=== PATIENT | female | born 1940 | race African-American/Black ===

== ENCOUNTER → 2018-10-09 | Outpatient (CLI) | payer OTHER, MEDICARE ==
[~2018-10-09] MED LIST: ASPIR 8181 M1 PO; DIOVAN HCT 3201 EACH PO; GLUCOPHAGE500 MG PO; GLYBURIDE 5 MG T5 MG PO; HUMULINR100 SUBQ; LEVEMIR SUBQ; METOPROLOL TART25 MG PO; NEURONTIN 300300 M1 PO; NORCO 5-325 TA1 EACH PO; PHOSLO667 MG PO; SENSIPAR 30 MG30 MG PO; ZOCOR80 MG PO
== END ==
LOC: CAT 08:41
DX: I67.82 Cerebral ischemia (principal); E11.40 Type 2 diabetes mellitus with diabetic neuropathy, unspecified; E11.22 Type 2 diabetes mellitus with diabetic chronic kidney disease; E11.29 Type 2 diabetes mellitus with other diabetic kidney complication; I12.0 Hypertensive chronic kidney disease with stage 5 chronic kidney disease or end stage renal disease; N18.5 Chronic kidney disease, stage 5; E78.5 Hyperlipidemia, unspecified; W19.XXXA Unspecified fall, initial encounter

== ENCOUNTER 2018-12-10 04:07 | Emergency (ER) | payer OTHER, MEDICARE ==
[~2018-12-10] VITALS: Ht 167.6 cm; Wt 78.5 kg
[2018-12-10 04:45] LABS: MCHC 32.8 g/dL (28.0-37.0); RBC 4.64 mil/uL (4.20-5.00); WBC 8.7 thou/uL (4.0-11.0)
[2018-12-10 04:46] LABS: HEMATOCRIT 47.6 % (37.0-47.0); HEMOGLOBIN 15.6 gm/dL (12.0-15.0); MCH 33.7 pg (26.0-34.0); MCV 102.8 fL (80.0-100.0); RDW 19.4 % (10.5-14.5)
[2018-12-10 05:17] LABS: CALCIUM 10.1 mg/dL (8.5-10.1); CREATININE 9.5 mg/dL (0.6-1.0); POTASSIUM 5.1 mmol/L (3.5-5.1)
[2018-12-10 05:27] LABS: ALBUMIN 3.2 g/dL (3.4-5.0); TOTAL BILIRUBIN 1.6 mg/dL (<0.1-1.0); TOTAL PROTEIN 6.7 g/dL (6.4-8.2); TROPONIN-I 0.25 ng/mL (<0.06)
[2018-12-10 10:41] VITALS: BP 123/68
--- NOTE | 2018-12-10 14:20 | EKG ---
[address] [place] [address] ELECTROCARDIOGRAM REPORT Name: ALEX STEWART [facility] [id number] ������������������ Admission: 12/10/18 ������������������ Attend Phys: Discharge: 12/10/18 ������������������ Date of : 38 Report #: [id number] ����������������������������������������������������������������� [id number] THIS REPORT FOR: //name// [facility] ED Test Date: 2018-12-10 Test Time: 04:35:02 Pat Name: ALEX STEWART Department: Room: Gender: F Residential Builder: lawson : 1940 Requested By: Sanjuanita Wong Order Number: [id number] MD: Vishal Newell Measurements Intervals [place] Rate: 87 P: 65 DC: 214 QRS: -58 QRSD: 136 T: 100 QT: 412 QTc: 496 Interpretive Statements Sinus rhythm Leftward axis Borderline prolonged DC interval Left bundle branch block Compared to ECG 10/07/2012 09:37:08 Left bundle-branch block now present Electronically Signed On 12-10-2018 14:20:41 CDT by Vishal Newell [email or web address] ��������������������������������������������� <ELECTRONICALLY SIGNED> ���������������������������������������� By: Vishal Newell MD, [facility] ��������������������������������������������� 12/10/18 1420 0435 0435 Vishal Newell MD, [facility] /EPI
== END 2018-12-10 11:07 | disposition home or self-care (01) ==
LOC: ER 04:07
PROVIDERS: Student in an Organized Health Care Education/Training Program
DX: E11.649 Type 2 diabetes mellitus with hypoglycemia without coma (principal); E11.22 Type 2 diabetes mellitus with diabetic chronic kidney disease; N18.6 End stage renal disease; R79.89 Other specified abnormal findings of blood chemistry; I10 Essential (primary) hypertension; E78.00 Pure hypercholesterolemia, unspecified; Z86.73 Personal history of transient ischemic attack (TIA), and cerebral infarction without residual deficits; Z79.4 Long term (current) use of insulin

== ENCOUNTER 2018-12-11 11:34 | Inpatient (IN) | payer OTHER, MEDICARE ==
[2018-12-11] VITALS (23 sets, daily range): BP systolic 91–186; BP diastolic 31–123
[~2018-12-11] VITALS: Ht 170.2 cm; Wt 70.7 kg
--- NOTE | ~2018-12-11 | HC ---
[facility] [place] [address] CONSULTATION Name: ALEX STEWART Room #: 246-P [facility] IN M.R.#: [id number] Admission: 12/11/18 ������������������ Attend Phys: Argelia Jasso Discharge: 12/12/18 ������������������ Date of : 39 Report #: [id number] THIS REPORT FOR: //name// CC: Argelia Bowles DATE OF SERVICE: 12/12/2018 REQUESTING PHYSICIAN: Argelia Jasso MD. CHIEF COMPLAINT: End-stage renal disease, also sepsis, possible secondary to ischemic colitis. HISTORY OF PRESENT ILLNESS: The patient is a 78-year-old female who presented to [facility] on 12/11/2018. She, at that time, had an altered mental status, fatigue, nausea, diarrhea. She has had a history of insulin controlled diabetes and has had recurrent hypoglycemic episodes. She had been in the ED previous day for significant hypoglycemia. She has been as low as less than 21. The patient has had what appears to be thickening of the cecum and ascending colon and she has signs significant for possible ischemic colitis. Surgery does not believe if she is an excellent candidate for surgery at this time and also Nephrology believes that she is not an excellent candidate for continued dialysis. I have spoken with her friend who is her only contact that we have available and confirms that she is the only contact that she has and she states that the patient was not desiring to have dialysis after this last week and had actually stopped dialysis herself. She was living at her own home, legally blind, using a walker, but it appears that the patient had significant decline overall over the last 2-3 days, again unknown as particular origin for current state. She is unable to answer questions for me at this time and would not follow commands. She does have some ability to move and occasionally groans out in pain. PAST MEDICAL HISTORY: End-stage renal disease. Additionally, type 2 diabetes with recurrent hypoglycemia, obesity, hypertension, history of CVA. PAST SURGICAL HISTORY: She has had a right mid humerus repair. She has had an AV fistula placement. SOCIAL HISTORY: Former smoker. Again, she has no established DPOA, no established advance directive at this time. MEDICATIONS: Gabapentin, regular insulin, aspirin, metformin, Diovan including valsartan/hydrochlorothiazide, Zocor, Levemir, metoprolol. ALLERGIES: No known drug allergies. [address] [address] CONSULTATION Name: ALEX STEWART Room #: 246-P [facility] IN M.R.#: [id number] Admission: 12/11/18 ������������������ Attend Phys: Argelia Jasso Discharge: 12/12/18 ������������������ Date of : 39 Report #: [id number] FAMILY HISTORY: Again, unable to obtain at this time, but none pertinently known. REVIEW OF SYSTEMS: Unable to obtain at this time due to chronic medical condition. PHYSICAL EXAMINATION: VITAL SIGNS: Temperature 35.2, pulse 81, respirations 17, blood pressure had been 173/57, 97% on a mask. GENERAL: Again, not alert, unable to assess orientation. Most time, she appears to be in no acute distress. HEENT: Occasionally, opens eyes. They do not appear to be icteric on her conjunctivae. CARDIOVASCULAR: Regular rate and rhythm without murmur. LUNGS: Difficult to auscultate fully, but anteriorly clear. ABDOMEN: Appears to have some mild tenderness to palpation based on grimacing. EXTREMITIES: She does not appear to have necrosis, but does have diminished pulses in bilateral lower extremities. LABORATORY DATA: White blood cell 24.8, hemoglobin 13.6, platelets 136, potassium is critical at 6.4, creatinine 10.0, lactic acid 12.4. ASSESSMENT AND PLAN: 1. Sepsis severe. At this time, suspect due to ischemic colitis, possibly due to other origins; however, the patient has significant contributing medical conditions. It would likely mean that her overall prognosis is very severe. I agree completely with Nephrology's assessment that she is not a good candidate for continued dialysis and also she has had confirmation from both dialysis staff through our case management and also through her friend today who I have talked to directly that she did not want to pursue dialysis any further and this is why she had stopped this previously. However, she did not make this clear in advanced directive. She is still not a candidate for further dialysis at this time and would not be an excellent candidate for surgical procedure. We have at this time elected to make her palliative care. I have changed her code status to DNR and I have informed her friends as well as her typing checker who is present at my interview. We will go ahead and order for comfort care medications, stop antibiotics, change her from mask oxygen, change her to nasal cannula. Staff was understanding of the instructions with regards to her palliation at this time. There is a possibility of being able to move her to another location, but certainly this is complicated by the fact that she has no established power of admitted attorneys or next of kin. I feel that she will likely need to have inpatient palliative care unless there are some other arrangements made such as potential guardianship; however, I do not feel like her life expectancy would allow for that at this time. 2. End-stage renal disease. Again, as above, I agree that she is not a good candidate for continued dialysis therapy and I expect her life expectancy to be [facility] [address] [place] [address] CONSULTATION Name: ALEX STEWART Room #: 246-P [facility] IN M.R.#: [id number] Admission: 12/11/18 ������������������ Attend Phys: Argelia Jasso Discharge: 12/12/18 ������������������ Date of : 39 Report #: [id number] approximately 7-10 days or less based on this. Thank you very much for this consultation. Please contact me for any further questions regarding her continued care. ��������������������������������������������� ���������������������������������������� By: ��������������������������������������������� 41 48 Apollo Villatoro DO /john
--- NOTE | ~2018-12-11 | HC ---
[facility] [place] [address] CONSULTATION Name: ALEX STEWART Room #: 246-P [facility] IN M.R.#: [id number] Admission: 12/11/18 ������������������ Attend Phys: Argelia Jasso Discharge: 12/12/18 ������������������ Date of : 39 Report #: [id number] THIS REPORT FOR: //name// CC: Argelia Bowles REASON FOR THE CONSULTATION: End-stage renal disease. REASON FOR THE PRESENTATION: Brought because of weakness. HISTORY OF PRESENT ILLNESS: Those were obtained from the chart as the patient is not able to provide me with the details of the history. She is a hemodialysis patient who dialyzes every Saturday, Saturday and Saturday. She missed her Saturday dialysis session. She is legally blind and lives at home. She has been feeling weak and had some issues with nausea, diarrhea and shortness of breath. She also lost her appetite. She was confused. She had some bruises on her face when she presented yesterday and she reported that she had a fall more than a month ago. On presentation, the patient was found to have significant lactic acidosis with hyperkalemia. She was emergently dialyzed yesterday. She continues to be acidotic and she had significant leukocytosis with no source yet. I am being consulted to manage her end-stage renal disease. PAST MEDICAL HISTORY: 1. End-stage renal disease. 2. Legally blind. 3. Diabetes mellitus. 4. Hyperlipidemia. 5. Stroke. PAST SURGICAL HISTORY: AV fistula. ALLERGIES: None. SOCIAL HISTORY: No drug or alcohol abuse. REVIEW OF SYSTEMS: I am not able to obtain as the patient is currently confused. PHYSICAL EXAMINATION: GENERAL: She is confused and disoriented. VITAL SIGNS: Blood pressure is 134/72. She is very lethargic. She is hypothermic and temperature was 34.2. HEAD AND NECK: No jugular venous distention. CHEST: Decreased air entry bilaterally. CARDIOVASCULAR: No rub. ABDOMEN: Soft and nontender. LOWER EXTREMITIES: +2 edema. [facility] [address] [place] [address] CONSULTATION Name: ALEX STEWART Room #: 246-P [facility] IN M.R.#: [id number] Admission: 12/11/18 ������������������ Attend Phys: Argelia Jasso Discharge: 12/12/18 ������������������ Date of : 39 Report #: [id number] LABORATORY DATA: Laboratory values reviewed. White blood cell count was 28.4, pH 7.2. Lactic acid this morning is up to 12. Potassium was 6.4 even though she was dialyzed yesterday. Cultures are pending. UA is positive for nitrite. RADIOLOGICAL DATA: Chest x-ray with fluid overload. CT chest, abdomen and pelvis with gallbladder distention and thickening of the cecum and cardiomegaly. ASSESSMENT, IMPRESSION AND PLAN: 1. End-stage renal disease. 2. Sepsis with high lactic acidosis with unknown source. 3. Leukocytosis. 4. Persistent hyperkalemia. 5. We will arrange for the patient to have another dialysis treatment given her hyperkalemia today. 6. Infectious Disease is following and managing her antibiotic given her leukocytosis and severe lactic acidosis. 7. Not really sure what the source for her hyperkalemia and lactic acidosis and elevated AST. Very concerned about ischemic bowel; however, this was not present on the CT that was done yesterday. 8. We will reach out to the family members regarding the patient's poor condition. 9. We will continue to follow during the hospital stay. ��������������������������������������������� ���������������������������������������� By: ��������������������������������������������� 0821 2321 Niko Davies MD /nt
--- NOTE | 2018-12-11 12:57 | NUR ---
[facility] CELL # IS [phone]
[2018-12-11 13:52] LABS: HEMOGLOBIN 15.8 gm/dL (12.0-15.0)
[2018-12-11 13:54] LABS: HEMATOCRIT 48.3 % (37.0-47.0); MCHC 32.7 g/dL (28.0-37.0); RBC 4.65 mil/uL (4.20-5.00); WBC 10.4 thou/uL (4.0-11.0)
[2018-12-11 14:08] LABS: CALCIUM 10.5 mg/dL (8.5-10.1); POTASSIUM 5.8 mmol/L (3.5-5.1)
[2018-12-11 14:09] LABS: CREATININE 10.8 mg/dL (0.6-1.0)
[2018-12-11 14:18] LABS: ALBUMIN 3.3 g/dL (3.4-5.0); TOTAL BILIRUBIN 1.7 mg/dL (<0.1-1.0); TOTAL PROTEIN 6.6 g/dL (6.4-8.2); TROPONIN-I 0.2 ng/mL (<0.06)
[2018-12-11 14:44] LABS: ABSOLUTE NEUTROPHILS 5.6 thou/uL (1.4-8.2); CORRECTED WBC 7.4 thou/uL (4.0-11.0); NUCLEATED RBCS 40 /100WBC
[2018-12-11 14:49] LABS: ANISOCYTOSIS 2+; MACROCYTES 1+; SCHISTOCYTES FEW
[2018-12-11 14:50] LABS: BURR CELLS 1+
[2018-12-11 14:54] LABS: LARGE PLATELETS OCCASIONAL; PLATELET COUNT 115 thou/uL (150-400)
[2018-12-11 15:13] LABS: BE(vivo) -13.9 mmol/L (-2 to +3); HCO3 11.1 mmol/L (22.0-26.0); PCO2 25.1 mmHg (35.0-45.0); sO2 99.2 % (92.0-98.0)
[2018-12-11 15:14] LABS: pH 7.264 (7.360-7.450)
[2018-12-11 17:26] LABS: URINE BLOOD 3+ (Negative); URINE CLARITY CLEAR; URINE COLOR YELLOW; URINE GLUCOSE-RANDOM* NEGATIVE (Negative); URINE KETONES NEGATIVE (Negative); URINE PROTEIN (DIPSTICK) 2+ (Negative); URINE SPECIFIC GRAVITY 1.025 (1.005-1.035); URINE UROBILINOGEN 0.2 E.U./dl (0.2-1.0)
[2018-12-11 17:29] LABS: ICTOTEST (BILI CONFIRMATORY) Negative (Negative); URINE BILIRUBIN NEGATIVE (Negative); URINE LEUKOCYTES-REFLEX 1+ (Negative); URINE NITRITE-REFLEX POSITIVE (Negative)
[2018-12-11 17:46] LABS: CASTS None Seen /LPF (None Seen); CRYSTALS None Seen /LPF (None Seen); SQUAMOUS 4-10 Moderate /LPF (0-3)
[2018-12-11 17:47] LABS: URIC ACID CRYSTALS 0-3 Few /LPF (None Seen)
[2018-12-11 17:48] LABS: BACTERIA-REFLEX 1-9 Few /HPF (None Seen); URINE WBC-REFLEX 0-5 Rare /HPF (0-5)
[2018-12-11 17:49] LABS: URINE RBC 3-10 Few /HPF (0-2)
--- NOTE | 2018-12-11 19:22 | NUR ---
VASCULAR ACCESS TEAM CONSULTED FOR PICC LINE. PT IS DIALYSIS PT SO CVAD MORE APPROPRIATE. DR CASTRO PUT CL ON HOLD LONG PT HAS PIV. PT HAS 2 PIV'S AT PRESENT.
--- NOTE | 2018-12-11 19:42 | NUR ---
PATIENT ARRIVED FROM THE ED INTO ROOM 246 AT 1815. PATIENT AWAKE AND ALERT FOLLOWING COMMANDS. PATIENT HYPOTHERMICAND UNABLW TO GET TEMP. PATIENT PLACED UNDER BARE HUGGER. ORDERS RECIEVED FOR PICC LINE, CALLED DR CHISHOLM AND HE STATED THAT WE DID NOT HAVE TO PLACE THE LINE LONG WE HAVE A GOOD PIV. #18 IN RIGHT EJ WORKING WELL, CALLED IV TEAM AND ASKED THEM TO COME PLACE A BACK UP PIV LINE JUST IN CASE. LONG #20 PLACED IN [place] AND WORKING WELL. DR PEREZ STATES THAT PATIENT STILL NEEDS PICC LINE. CALLED DR LYNNE SINCE PATIENT IS A DIALYSIS PATIENT AND HE SAID NO PICC LONG I HAVE GOOD WORKING PIV. PATIENT RESTING IN BED AT THIS TIME. REPORT GIVEN TO [employer]ICE [employer]. NO FURTHER CONCENRS AT THIS TIME. WILL CONTINUE TO MONITOR AND CAR PER PLAN OF CARE.
--- NOTE | 2018-12-11 22:50 | NUR ---
ADMISSION HX AND ASSESSMENT DOCUMENT. PT IS CONFUSE. POOR HISTORIAN. UNABLE TO PROVIDE HX. DROWSY. AOX1 ONLY. TALK TO SR. CRUM ABOUT PT CARE. UNABLE TO GET AN APPROPIATE O2 SAT ON PT. TEMPS 93.6, DR. CRUM INFORMED. FAILED ATTEMPT TO GET ABG TO DETERMINE O2 SATS. PT CURRENT UNDER PRISCILA HUGGER AND WARM BLANKETS. ONGOING HEMODIALYSIS CURRENT. PULLED OUT DIALYSIS NEEDLE DURING THERAPY. PT CURRENTLY RESTRAINTED FOR SAFETY. NO COMPLAINS CURRENTLY. WILL CONTINUE TO MONITOR.
[2018-12-11 23:46] LABS: HEMATOCRIT 57.8 % (37.0-47.0); MCH 34.3 pg (26.0-34.0); MCHC 33.5 g/dL (28.0-37.0); MCV 102.3 fL (80.0-100.0); RBC 5.65 mil/uL (4.20-5.00); RDW 19.3 % (10.5-14.5)
[2018-12-11 23:51] LABS: HEMOGLOBIN 19.4 gm/dL (12.0-15.0); WBC 28.4 thou/uL (4.0-11.0)
[2018-12-12] VITALS (20 sets, daily range): BP systolic 79–203; BP diastolic 25–124
[2018-12-12 01:16] LABS: HEMATOCRIT 52.1 % (37.0-47.0); MCH 33.5 pg (26.0-34.0); MCHC 32.5 g/dL (28.0-37.0); MCV 103.2 fL (80.0-100.0); RBC 5.04 mil/uL (4.20-5.00); RDW 19.6 % (10.5-14.5); WBC 27.5 thou/uL (4.0-11.0)
[2018-12-12 01:17] LABS: HEMOGLOBIN 16.9 gm/dL (12.0-15.0)
--- NOTE | 2018-12-12 02:05 | NUR ---
ANOTHER ATTEMPT FOR AN ABG WITH NO SUCCESS. INSTRUMENT MECHANIC INFORMED ABOUT SITUATION. HPOGLYCEMIC, D50 GIVEN. LABS SENT FOR LACTATE, CBC, AND GLUCOSE. COMMUNICATED RESULTS TO LUIS ROSEN. MORPHINE AND ATIVAN GIVEN. WILL CONTINUE TO MONITOR PT.
[2018-12-12 05:41] LABS: HEMATOCRIT 42.6 % (37.0-47.0); HEMOGLOBIN 13.6 gm/dL (12.0-15.0); MCH 33.4 pg (26.0-34.0); MCHC 31.9 g/dL (28.0-37.0); MCV 104.6 fL (80.0-100.0); PLATELET COUNT 136 thou/uL (150-400); RBC 4.07 mil/uL (4.20-5.00); RDW 19.2 % (10.5-14.5); WBC 24.8 thou/uL (4.0-11.0)
[2018-12-12 05:49] LABS: CALCIUM 9.6 mg/dL (8.5-10.1)
[2018-12-12 05:55] LABS: POTASSIUM 6.4 mmol/L (3.5-5.1)
[2018-12-12 06:04] LABS: ABSOLUTE NEUTROPHILS 15.5 thou/uL (1.4-8.2); CORRECTED WBC 17.6 thou/uL (4.0-11.0); NUCLEATED RBCS 41 /100WBC
[2018-12-12 06:05] LABS: BURR CELLS 4+; PLATELET ESTIMATE DECREASED; POLYCHROMASIA 1+
[2018-12-12 06:06] LABS: ANISOCYTOSIS 2+; MACROCYTES 1+
--- NOTE | 2018-12-12 06:15 | NUR ---
trey this a.m. hypothermic, chantelle balderas on pain. no apparent pain. bp stable. critical results communicated to dr. la and ham kilgore. on 15l nrb, no apparent distress at rest. restraints in place, for pt safety. no complains presently. will continue to monitor pt.
--- NOTE | 2018-12-12 09:03 | NUR ---
Received RD consult however per ICU rounds this am, pt will be palliative care. Defer nutrition assessment.
--- NOTE | 2018-12-12 10:05 | NUR ---
DIALYSIS NURSE AT BEDSIDE HAVING BLEEDING DIFFICULTIES WITH FISTULA. DR GAYTAN AT BEDSIDE AND CALLED PT'S EMERGENCY CONTACT AND DISCUSSED POOR PROGNOSIS WITH HER. PT IS A DNR AND DECISION MADE TO GO PALLIATIVE CARE. DR LANGSTON CONSULTED. DIALYSIS NURSE ABLE TO GET BLEEDING TO STOP. PRN LORAZEPAM GIVEN TO PATIENT AND AC WRIST RESTRAINTS REMOVED.
--- NOTE | 2018-12-12 10:10 | NUR ---
INITIAL ASSESSMENT: Pt evaluated for d/c planning needs. Reviewed chart and spoke with nurse and physician. Pt has dialysis MWF at [facility]. Spoke with nurse at [facility]. Pt lives alone in apartment and has no family. Pt has friend who had been checking on her. Dialysis Nurse said that pt has had falls recently and has not had dialysis since last Saturday (12/05). Pt cancelled dialysis for this week. Pt has poor vision. Pt is currently palliative care. Will remain available to assist as needed.
--- NOTE | 2018-12-12 12:09 | EKG ---
[address] [place] [address] ELECTROCARDIOGRAM REPORT Name: TERRYALEX DONNA Room #: 246-P [facility] IN M.R.#: [id number] ������������������ Admission: 12/11/18 ������������������ Attend Phys: Argelia Jasso Discharge: ������������������ Date of : 39 Report #: [id number] ����������������������������������������������������������������� [id number] THIS REPORT FOR: //name// [facility] ED Test Date: 2018-12-11 Test Time: 12:43:45 Pat Name: ALEX STEWART Department: Room: 246 Gender: F Electrical Assembly Supervisor: krista : 1940 Requested By: Renee Teran Order Number: [id number] MD: Vishal Newell Measurements Intervals [place] Rate: 64 P: 39 CA: 173 QRS: -72 QRSD: 148 T: 110 QT: 488 QTc: 504 Interpretive Statements Sinus rhythm Nonspecific IVCD with LAD Poor R wave progression Compared to ECG 12/10/2018 04:35:02 No significant change was found Electronically Signed On 12-12-2018 12:09:07 CDT by Vishal Newell [email or web address] ��������������������������������������������� <ELECTRONICALLY SIGNED> ���������������������������������������� By: Vishal Newell MD, [facility] ��������������������������������������������� 12/12/18 1209 1243 1243 Vishal Newell MD, [facility] /EPI
--- NOTE | 2018-12-12 14:08 | NUR ---
WOUND CONSULT: PT. WAS SEEN TODAY BY DR. WASHBURN AND MYSELF. FAMILY HAS DECIDED TO WITHDRAWL ALL CARES AT THIS TIME. DIALYSIS HAS ALREADY BEEN STOPED AND PALLATIVE CARE HAS BEEN STARTED. WOUND CARE WILL NOT INTERVEN AT THIS TIME.
[2018-12-12 16:08] LABS: HEPATITIS B SURFACE AG Negative (Negative)
--- NOTE | 2018-12-12 19:04 | NUR ---
PT AT 1820. FAMILY FRIEND BINDU NOTIFIED AND MAKING ARRANGEMENTS WITH [facility]. [employer] NOTIFIED AND NOT CANDIDATE FOR ANY DONATION. PACKET COMPLETED BY THIS RN AND REPORTED OFF TO [facility] WHO WILL CALL CONSULTS TO NOTIFY. ALL BELONGINGS PACKED TO GO WITH FAMILY.
--- NOTE | 2018-12-12 20:58 | NUR ---
PT CARE TAKEN OVER AT 1900. CONSULTING PHYSICIANS CALLED AND NOTIFIED OF . SECURITY CALLED TO FLOOR AND PATIENT TAKEN OFF UNIT AT 2100.
--- NOTE | 2018-12-13 10:13 | HC ---
[facility] [place] [address] [address] CONSULTATION Name: ALEX STEWART Room #: 246-P [facility] IN M.R.#: [id number] Admission: 12/11/18 ������������������ Attend Phys: Argelia Jasso Discharge: 12/12/18 ������������������ Date of : 39 Report #: [id number] THIS REPORT FOR: //name// CC: Argelia Hortonen Jelena DATE OF SERVICE: 12/12/2018 CHIEF COMPLAINT: Ulceration to the left foot. HISTORY OF PRESENT ILLNESS: This is a 78-year-old female patient who presented to the hospital with weakness, fatigue, nausea, vomiting, diarrhea 2-3 days ago. She has had insulin controlled diabetes. She is not able to provide any information about herself at this time. The patient is in Intensive Care Unit presently and is not able to answer any questions. PAST MEDICAL HISTORY: Hypertension, hypercholesterolemia, diabetes, stroke, renal failure. SOCIAL HISTORY: Positive for previous smoker status, occasional alcohol consumption. FAMILY HISTORY: Unknown. ALLERGIES: None. MEDICATIONS: Include metformin, Diovan, Zocor, [place], Sensipar, Levemir, metoprolol, PhosLo. REVIEW OF SYSTEMS: Unobtainable due to the patient's diminished level of consciousness. PHYSICAL EXAMINATION: VITAL SIGNS: At this time include pulse rate 85, respiratory rate 14, blood pressure 85/25. GENERAL: This is a chronically ill-appearing female patient who is minimally responsive. HEENT: Head normocephalic. Nose and throat clear. NECK: Supple. LUNGS: Diminished. HEART: Regular rhythm. ABDOMEN: Soft, nontender. EXTREMITIES: Lower extremities appear mottled, distal pulses are not palpable. She has a small area of eschar on the medial aspect of the left ankle. No other evidence of open ulceration at this time. NEUROLOGIC: The patient is nonresponsive. [facility] [address] [place] [address] CONSULTATION Name: STEWARTALEX Room #: 246-P [facility] IN .R.#: [id number] Admission: 12/11/18 ������������������ Attend Phys: Argelia Jasso Discharge: 12/12/18 ������������������ Date of : 39 Report #: [id number] LABORATORY DATA: Includes white blood cell count of 24.8 with hemoglobin 13.6, hematocrit 42.6, platelet count is 136,000. Sodium 137, potassium is 6.4, chloride 99, CO2 is 12. CLINICAL IMPRESSION: 1. Ulceration of the left medial ankle. 2. Severe sepsis with obtundation. 3. End-stage renal disease. 4. Type 2 diabetes mellitus with recent hypoglycemia. RECOMMENDATIONS: At this point in time, I think the dry eschar could be left stable and intact. Clearly, she has a very guarded prognosis and it appears that she is imminently going to be placed on comfort care measures only. At this point in time, we have nothing further to offer or add to her care. We will sign off. Appreciate being asked to see her in consultation. ��������������������������������������������� <ELECTRONICALLY SIGNED> ���������������������������������������� By: Gomez Rivero MD ��������������������������������������������� 12/13/18 1013 1417 0353 Gomez Rivero MD /nt
--- NOTE | 2018-12-13 14:56 | HC ---
[facility] [place] [address] CONSULTATION Name: ALEX STEWART Room #: 246-P [facility] IN M.R.#: [id number] Admission: 12/11/18 ������������������ Attend Phys: Argelia Jasso Discharge: 12/12/18 ������������������ Date of : 39 Report #: [id number] THIS REPORT FOR: //name// CC: Argelia Bowles DATE OF SERVICE: 12/12/2018 REFERRAL PHYSICIAN: Dr. Jasso. REASON FOR REFERRAL: Sepsis. HISTORY OF PRESENT ILLNESS: The patient is a 78-year-old white female who was brought to the ED with weakness, sore throat, abdominal pain, nausea, diarrhea for the past 2-3 days. She was felt to be septic, possibly UTI. A pulmonary consultation was requested. The patient appears to be in moderate distress, moaning. I am not able to obtain much history. PAST MEDICAL HISTORY: Notable for history of CVA, diabetes mellitus, end-stage renal disease, undergoing hemodialysis, hypertension, history of fall sustaining a right mid humerus fracture in 2013, legal blindness. ALLERGIES: None. HOME MEDICATIONS: List reviewed. Please see the MAR. FAMILY HISTORY: Noncontributory. SOCIAL HISTORY: Passive tobacco use. She also has drank up to recently. REVIEW OF SYSTEMS: Deferred as the patient is not able to provide much history due to illness. PHYSICAL EXAMINATION: GENERAL: She is semi-arousable, appears to be moaning in moderate distress. VITAL SIGNS: Temperature is 97.3 degrees Fahrenheit, on admission her temperature was 98.3, pulse is 80, respiratory rate is 24, blood pressure is 175/53 mmHg, saturation 95%. HEENT: Normocephalic, atraumatic. NECK: Supple, without lymphadenopathy or thyromegaly. CHEST: Breath sounds are fair due to poor effort. Few scattered crackles in the bases. No wheezes. CARDIOVASCULAR: Normal S1, S2. There are no murmurs or gallop. There is no JVD. There is no carotid bruit. Pulses are 2+/4+ bilaterally. [facility] [address] [place] [address] CONSULTATION Name: TERRYALEX Room #: 246-P [facility] IN ..#: [id number] Admission: 12/11/18 ������������������ Attend Phys: Argelia Jasso Discharge: 12/12/18 ������������������ Date of : 39 Report #: [id number] ABDOMEN: Soft, nontender, no organomegaly or masses felt. GENITOURINARY: Deferred. RECTAL: Deferred. EXTREMITIES: There is no edema, cyanosis or clubbing. LABORATORY DATA: Chest x-ray shows cardiomegaly, left-sided pleural effusion, possible atelectasis. Electrolytes: Sodium 137, potassium 5.8, chloride 96, CO2 is 19, BUN is 93, creatinine is 10.8. WBC 20,400, hemoglobin 15.8, platelets are normal. Albumin 3.2. Atrial blood gas revealed pH 7.26, pCO2 of 25, pO2 of 191 on 6 liters of O2. IMPRESSION: 1. Acute hypoxic respiratory failure in this 78-year-old white female probably related to sepsis. 2. Bilateral pleural effusion, possible left lower lobe infiltrate and/or atelectasis. 3. Sepsis, severe, source not clear at this time, but need to consider urinary tract, possible gastrointestinal tract, biliary source. 4. End-stage renal disease. 5. Diabetes mellitus type 2. 6. Transient hypoglycemia. 7. Hypertension. 8. Medical directive, DNR. According to nursing, the patient is recently placed on palliative care. Continue current care, comfort care as directed. Not much to add from Pulmonary Critical Care standpoint. I will standby. Please call if there are any questions. ��������������������������������������������� <ELECTRONICALLY SIGNED> ���������������������������������������� By: Saeid Magaña MD ��������������������������������������������� 12/13/18 1456 1420 0407 Saeid Magaña MD /nt
--- NOTE | 2018-12-15 13:19 | HC ---
[facility] [place] [address] CONSULTATION Name: TERRYALEX THOMPSON Room #: 246-P [facility] IN M.R.#: [id number] Admission: 12/11/18 ������������������ Attend Phys: Argelia Jasso Discharge: 12/12/18 ������������������ Date of : 38 Report #: [id number] THIS REPORT FOR: //name// CC: Argelia Hortonen Jelena DATE OF SERVICE: 12/11/2018 INFECTIOUS DISEASES CONSULTATION REASON FOR CONSULTATION: I was asked to evaluate the patient concerning sepsis. HISTORY OF PRESENT ILLNESS: The patient is a 78-year-old with underlying history of coronary artery disease, hypertension, diabetes, end-stage renal disease, cerebrovascular disease who resides at home by herself. She is legally blind. Presented yesterday with generalized weakness associated with nausea, vomiting and diarrhea. Onset was 3 days ago. When she presented, she was hypoglycemic. The patient was a poor historian, but history was gleaned from the record and discussion with nursing staff along with discussion with the patient. She has been short of breath. She has been fatigued. Stools remain loose without bloody. No bloody emesis. She has been anorexic. Remains on insulin. She dialyzes 3 days a week. When she was in the Emergency Room yesterday, it was felt that this was mostly a hypoglycemic episode. However, despite change in her insulin dosing, she has not improved. She has had no travel. No other contacts of ill persons. She has had no chills or sweats. She has had no documented fever. She has been hypothermic since admission. She reports abdominal discomfort mostly in the epigastric, mid abdominal region. No other localizing symptoms. Discomfort does not radiate to her back. She has had no further emesis today. REVIEW OF SYSTEMS: A 10-point review of system was negative other than what has been described above. ALLERGIES: None known. MEDICATIONS: As noted on her MAR, now on vancomycin and Zosyn. She has been on no corticosteroids. She does take metformin, Diovan, Zocor, Temple, Sensipar, Levemir, metoprolol and calcium acetate. PAST MEDICAL HISTORY: End-stage renal disease, stroke, diabetes, coronary artery disease, right humerus fracture, hypercholesterolemia, hypertension. FAMILY HISTORY: Noncontributory. SOCIAL HISTORY: Past smoker, no significant alcohol intake. [facility] [address] [place] [address] CONSULTATION Name: ALEX STEWART Room #: 246-P [facility] IN M.R.#: [id number] Admission: 12/11/18 ������������������ Attend Phys: Argelia Omega Kary Discharge: 12/12/18 ������������������ Date of : 38 Report #: [id number] PHYSICAL EXAMINATION: GENERAL: She was hypothermic. VITAL SIGNS: Temperature 94.7 and she was on 6 liters of oxygen per nasal cannula, heart rate was 68, respiratory rate 16, blood pressure 149/61. SKIN: She had bruising to her face around her nose and maxillary regions. Distal upper and lower extremities, erythematous, some mottling. Dry skin to both feet with deep cracks evident. No other rashes or decubiti. No palpable adenopathy. EYES: Without scleral icterus. MOUTH: She had upper dentures. No oral lesions otherwise noted. NECK: Supple. No thyromegaly or mass. LUNGS: Crackles in the bases bilaterally. HEART: Regular, without murmur, gallop or rub. ABDOMEN: Mild distention, no definite point tenderness. No hepatosplenomegaly or mass appreciated. RECTAL: Not performed. GENITOURINARY: External genitalia without lesion noted. EXTREMITIES: Thickened skin to both lower extremities below the knee. No definite edema. NEUROLOGIC: Mental status was lethargic, but arousable and able to follow commands. She was legally blind. Strength in upper and lower extremities was diffusely diminished. Sensation to touch was intact in upper and lower extremities. LABORATORY STUDIES: Hemoglobin 15.8, WBC 10.4 with 76% neutrophils, platelet count 115,000. Sodium 136, potassium 5.8, bicarbonate of 19, creatinine 10.8, bilirubin 1.7, alkaline phosphatase 83, AST 50, ALT 38. Blood cultures are pending. Urinalysis was unremarkable. Troponin 0.25, lactate 10. ABG on 6 liters, pO2 of 191, pCO2 of 25, pH 7.26. Chest x-ray, basilar changes with atelectasis and effusion. CT of the chest, bilateral effusions, ascites, gallbladder distention, thickening of the cecum and ascending colon. Ultrasound of the abdomen showed ascites and bilateral effusions, dilated gallbladder with thickened wall and fluid around the gallbladder. Ultrasound of the lower extremities, arterial study showed distal disease bilaterally. IMPRESSION: A 78-year-old diabetic with end-stage renal disease, severe sepsis with encephalopathy, nausea, vomiting and diarrhea associated with findings of thickening cecum and ascending colon as well as dilated gallbladder with thickened wall. Considering ischemic colitis versus acalculous cholecystitis in a diabetic. Other consideration would be infectious colitis. Cold bacteremia also possible. No evidence of pneumonia or urinary tract infection. She does have peripheral vascular disease. RECOMMENDATIONS: Continue sepsis in the ICU with full support, broad antibiotic [address] [address] CONSULTATION Name: ALEX STEWART Room #: 246-P [facility] IN M.R.#: [id number] Admission: 12/11/18 ������������������ Attend Phys: Argelia Jasso Discharge: 12/12/18 ������������������ Date of : 38 Report #: [id number] coverage, cultures of blood and stool, PIPIDA scan and ask General Surgery to evaluate her abdomen. ��������������������������������������������� <ELECTRONICALLY SIGNED> ���������������������������������������� By: Shashi Wild MD ��������������������������������������������� 12/15/18 1319 2045 1249 Shashi Wild MD /nt
== END 2018-12-12 18:21 | DRG 871 ==
LOC: ER 11:34 → EROBS 17:34 → ICU 17:34
PROVIDERS: Hospitalist; Physician Assistant; ADMIT Hospitalist
DX: A41.9 Sepsis, unspecified organism (principal); N18.6 End stage renal disease; J96.01 Acute respiratory failure with hypoxia; R65.21 Severe sepsis with septic shock; N39.0 Urinary tract infection, site not specified; L97.329 Non-pressure chronic ulcer of left ankle with unspecified severity; G93.40 Encephalopathy, unspecified; I13.2 Hypertensive heart and chronic kidney disease with heart failure and with stage 5 chronic kidney disease, or end stage renal disease; E78.00 Pure hypercholesterolemia, unspecified; E11.649 Type 2 diabetes mellitus with hypoglycemia without coma; I25.10 Atherosclerotic heart disease of native coronary artery without angina pectoris; R65.20 Severe sepsis without septic shock; H54.8 Legal blindness, as defined in USA; E78.5 Hyperlipidemia, unspecified; E87.5 Hyperkalemia; Z66 Do not resuscitate; E66.9 Obesity, unspecified; T68.XXXA Hypothermia, initial encounter; I50.9 Heart failure, unspecified; E11.22 Type 2 diabetes mellitus with diabetic chronic kidney disease; Z86.73 Personal history of transient ischemic attack (TIA), and cerebral infarction without residual deficits; Z68.24 Body mass index [BMI] 24.0-24.9, adult; Z87.891 Personal history of nicotine dependence; Z87.81 Personal history of (healed) traumatic fracture
CPT/HCPCS: 10078; 32100; 56638